=== PATIENT | female | born 1975 | race African-American/Black ===

== ENCOUNTER 2020-07-21 09:18 | Emergency (ER) | payer SELFPAY ==
[~2020-07-21] VITALS: Ht 176.5 cm; Wt 82.0 kg
[2020-07-21] MEDS ORDERED: PRED20TA PO (09:42)
[2020-07-21] MEDS ORDERED: BENZ100C PO (09:42)
--- NOTE | 2020-07-21 09:42 | PHYS DOC ---
Past History Additional Past Medical Histor: Environmental allergens Past Surgical History: Smoking: Non-smoker Alcohol Use: Occasionally Drug Use: None General Adult EDM: Chief Complaint: Cough HPI: HPI: 45-year-old female presents with 2 day history of nonproductive cough. Patient reports she is been taking Mucinex without improvement. Patient does report some associated nasal congestion. Patient does have a history of environmental allergies. Denies smoking. Denies known exposure to COVID-19. Denies leg swelling or calf tenderness. Denies fever or chills. Denies Review of Systems: Review of Systems: Constitutional: Denies fever or chills Eyes: Denies redness or eye pain HENT: Reports nasal congestion; denies sore throat Respiratory: Reports cough; denies shortness of breath Cardiovascular: Denies chest pain or palpitations GI: Denies abdominal pain, nausea, or vomiting : Denies dysuria or hematuria Musculoskeletal: Denies back pain or joint pain Integument: Denies rash or skin lesions Neurologic: Denies headache, focal weakness or sensory changes Complete systems were reviewed and found to be within normal limits, except as documented in this note. Physical Exam: PE: Constitutional: Well developed, well nourished, no acute distress, non-toxic appearance HENT: Normocephalic, atraumatic Eyes: Conjunctiva normal, no discharge Neck: Normal range of motion, supple Lungs & Thorax: No respiratory distress, equal chest rise and fall Skin: Warm, dry, no erythema, no rash Extremities: No tenderness, ROM intact, no edema Neurologic: Alert and oriented X 3, no focal deficits noted Psychologic: Affect normal, judgment normal EKG: EKG: [] Radiology/Procedures: Radiology/Procedures: PROCEDURE: CHEST AP ONLY CHEST AP ONLY History: Reason: cough / Spl. Instructions: / History: Comparison: None. Findings: No consolidation or pleural effusion. Normal heart size. No pneumothorax. Impression: 1. No acute cardiopulmonary process. Electronically signed by: Pepe Neal DO (07/21/2020 9:56 AM) [id number] Course & Med Decision Making: Course & Med Decision Making Pertinent Labs and Imaging studies reviewed. (See chart for details) Patient presents with 2-day history of cough with associated nasal congestion. Sats stable. Patient denies known exposure to COVID-19 or fever or chills. Cannot fully exclude COVID-19. COVID precautions in place. COVID testing pending. Chest x-ray without acute process. Of note patient's blood pressure noted to be elevated. Patient denies history or current management of hypertension. Patient advised to follow closely with PCP for further evaluation. Patient stable for discharge with outpatient follow-up with PCP. Community PCP list provided. Discussed findings and plan with patient, who acknowledges understanding and agreement. COVID-19 CRITERIA: The patient was evaluated during the global COVID-19 pandemic, and that diagnosis was suspected/considered upon their initial presentation. Their evaluation, treatment and testing was consistent with current guidelines for patients who present with complaints or symptoms that may be related to COVID-19. Dragon Disclaimer: [employer] Disclaimer: This electronic medical record was generated, in whole or in part, using a voice recognition dictation system. Departure Departure: Impression: Primary Impression: Bronchitis Additional Impressions: Suspected 2019 novel coronavirus infection Hypertension Qualified Codes: I10 - Essential (primary) hypertension Disposition: HOME/RESIDENCE PRIOR TO ADM Condition: STABLE Referrals: PCP,NO (PCP) Patient Instructions: Acute Bronchitis, [id number] Additional Instructions: You have been tested for or diagnosed with COVID-19. It is an infection caused by a new type of coronavirus. COVID-19 will cause cold-like or mild flu symptoms in most. It can cause more severe symptoms like problems breathing in some. There is no treatment for COVID-19. The body will clear the infection over time. Self-care will help to ease discomfort. Steps to Take: Self-Care Rest as needed. Healthy habits may help you feel better. Steps include: Choose healthy foods including fruits and vegetables. Drink water throughout the day. Get plenty of sleep each night. If you smoke, try to quit. It may ease breathing. Avoid alcohol. Keep Others Healthy The virus can spread to others. Droplets are released every time you sneeze or cough. The droplets can get into the mouth, nose, or eyes of people near you and lead to infection. To lower the chances of spreading COVID-19 to others: Stay at home until your doctor has said it is safe to leave. If you tested positive this will mean staying isolated until both of the following are true: At least 7 days have passed since the start of illness. You are free of fever for at least 72 hours without the use of medicine. During this time: - Avoid public areas, events, or transportation. Do not return to work or school until your doctor has said it is safe to do so. - Call ahead if you need to go to a medical center. Let them know you may have COVID-19. It will help them guide you where to go. They may also ask you to wear a facemask when you come to the office. - If you call for emergency medical services, let them know you may have COVID- 19. While at home: - Try to avoid close contact with others. Stay about 6 feet away. - If possible, spend most of your time in a separate room from others. - Use a face mask if you will be in close contact with others such as sharing a room or vehicle. - Have someone wipe down common surfaces in the home. Use household vending service technician every day on areas like doorknobs, counters, or sinks. - Cough or sneeze into a tissue. Throw the tissue away right after use. If a tissue is not available, cough or sneeze into your elbow. - Wash your hands often. Wash them after sneezing or coughing. Use soap and water and wash for at least 20 seconds. Alcohol based hand pool cleaner can be used if soap and wate r is not available. - Do not prepare food for others. Avoid sharing personal items like forks, spoons, or toothbrushes. - Avoid close contact with pets while you are sick. There is no evidence of the virus passing to pets. This is a safety step until more is known about this virus. Isolation can be frustrating. Social interaction can help. Keep in touch with friends and family through phone and tech options. You can still interact with others in your home, just keep a safe distance of about 6 feet. Follow-up: Your doctors office will check in with you to see if there are any changes in your health. You may be asked to keep track of symptoms to share with them. They will also let you know when you are clear to be in public again. Problems to Look Out For: Contact your doctor if your recovery is not going as you expect. Get emergency care if you have problems such as: - Trouble breathing - Nonstop chest pain or pressure - Changes in awareness, confusion, or problems waking - Lips or face have bluish color - Worsening of symptoms If you think you have an emergency, call for emergency medical services right away. As taken from [employer] Benzonatate (TESSALON PERLE) 100 Mg Capsule 1 CAP PO TID PRN for COUGH, #30 CAP Prov: JAKOB YOUSIF DO 07/21/20 Prednisone (PREDNISONE) 20 Mg Tablet 1 TAB PO BID for Bronchitis, #10 TAB Prov: JAKOB YOUSIF DO 07/21/20 Justification of Admission: Justification of Admission: Justification of Admission Dx: N/A COVID-19 Assessment COVID-19 Patient Risks: Age 65 or older: No Sign of co-morbidity: No Exp to person + for COVID: No Exp to PUI: No Travel from affected area: No Lower respiratory symptoms: Yes Fever: No PPE Use: Full PPE with N95 mask or PAPR: Yes JAKOB YOUSIF DO Jul 21, 2020 09:42
[2020-07-21 09:48] VITALS: BP 172/109
--- NOTE | 2020-07-21 09:59 | RAD ---
CHEST AP ONLY History: Reason: cough / Spl. Instructions: / History: Comparison: None. Findings: No consolidation or pleural effusion. Normal heart size. No pneumothorax. Impression: 1. No acute cardiopulmonary process. Electronically signed by: Pepe Neal DO (07/21/2020 9:56 AM) [id number]
--- NOTE | 2020-07-24 13:13 | NUR ---
IP: attempt to notify patient of COVID result, left message to call back. Letter sent.
== END 2020-07-21 09:50 | disposition home or self-care (01) ==
LOC: ER 09:18
DX: J40 Bronchitis, not specified as acute or chronic (principal); I10 Essential (primary) hypertension; Z20.828 Contact with and (suspected) exposure to other viral communicable diseases
CPT/HCPCS: 71045; 99284; U0003